=== PATIENT | female | born 1995 | race Caucasian/White ===

== ENCOUNTER 2017-01-10 21:18 | Emergency (ER) | payer OTHER ==
[2017-01-10 21:28] VITALS: BP 119/87
== END 2017-01-10 23:19 | disposition home or self-care (01) ==
LOC: ED 21:18
DX: S61.512A Laceration without foreign body of left wrist, initial encounter (principal); W18.02XA Striking against glass with subsequent fall, initial encounter; Y93.89 Activity, other specified; Y92.008 Other place in unspecified non-institutional (private) residence as the place of occurrence of the external cause; Y99.8 Other external cause status
CPT/HCPCS: J2001

== ENCOUNTER 2017-01-16 16:24 | Emergency (ER) | payer OTHER ==
[~2017-01-16] VITALS: Ht 160 cm; Wt 60.5 kg
[2017-01-16 16:43] VITALS: BP 120/74
== END 2017-01-16 18:18 | disposition home or self-care (01) ==
LOC: ED 16:24
DX: S61.512D Laceration without foreign body of left wrist, subsequent encounter (principal); X58.XXXD Exposure to other specified factors, subsequent encounter; Y92.89 Other specified places as the place of occurrence of the external cause; Y99.8 Other external cause status

== ENCOUNTER 2018-06-06 01:48 | Emergency (ER) | payer OTHER ==
[~2018-06-06] VITALS: Ht 160 cm; Wt 62.6 kg
[2018-06-06 02:18] VITALS: Ht 160 cm; Wt 62.6 kg
[2018-06-06 05:57] VITALS: BP 112/62
== END 2018-06-06 05:57 | disposition home or self-care (01) ==
LOC: ED 01:48
DX: T23.202A Burn of second degree of left hand, unspecified site, initial encounter (principal); T31.0 Burns involving less than 10% of body surface; X19.XXXA Contact with other heat and hot substances, initial encounter; Y93.89 Activity, other specified; Y92.89 Other specified places as the place of occurrence of the external cause; Y99.0 Civilian activity done for income or pay

== ENCOUNTER 2019-01-11 16:13 | Emergency (ER) | payer OTHER ==
[~2019-01-11] VITALS: Ht 160 cm; Wt 62.6 kg
[2019-01-11 16:29] VITALS: Ht 160 cm; Wt 62.6 kg
[2019-01-11 17:36] VITALS: BP 119/63
== END 2019-01-11 17:36 | disposition home or self-care (01) ==
LOC: ED 16:13
DX: K59.09 Other constipation (principal); R10.13 Epigastric pain